=== PATIENT | male | born 1975 | race Two or more races ===

== ENCOUNTER 2023-07-18 11:00 | Day surgery (SDC) | payer BC ==
[2023-07-18] MEDS: Lactated Ringers 1,000 ML IV SCH (11:16)
[2023-07-18] MEDS ORDERED: Propofol 200 MG/20 ML SDV ONE ×2 (11:46→12:04)
[2023-07-18] MEDS ORDERED: Midazolam 1 MG/ML 2 ML SDV ONE (11:54)
== END 2023-07-18 13:14 | disposition home or self-care (01) ==
LOC: VM.SDS 11:00
PROVIDERS: ATTEND Surgery
DX: Z12.11 Encounter for screening for malignant neoplasm of colon (principal); F32.A Depression, unspecified; E66.9 Obesity, unspecified; Z79.899 Other long term (current) drug therapy
CPT/HCPCS: J2250; J2704; J7120

== ENCOUNTER 2025-02-22 23:45 | Emergency (ER) | payer BC, MEDICAID ==
[2025-02-22] MEDS ORDERED: Sodium Chloride 0.9% 10 ML Syringe FLUSH PRN (23:46)
[2025-02-22] MEDS: Ketorolac 15 MG/ML SDV IVPUSH ONE (23:56)
== END 2025-02-23 01:10 | disposition home or self-care (01) ==
LOC: VM.ED 23:45
DX: M62.838 Other muscle spasm (principal); E66.9 Obesity, unspecified; E11.9 Type 2 diabetes mellitus without complications; Z79.899 Other long term (current) drug therapy; Z68.26 Body mass index [BMI] 26.0-26.9, adult
CPT/HCPCS: 96374; 96375; 99283; 99283-25; J1885; J3360